=== PATIENT | female | born 1945 | race Caucasian/White ===

== ENCOUNTER 2019-02-25 16:44 | Inpatient (IN) | payer MEDICARE ==
[~2019-02-25 16:44] MED LIST: LEVOFLOXACIN500 MG PO; MAG-OXIDE400 MG PO
[2019-02-25 18:22] VITALS: BP 126/76; BMI 24.7
[2019-02-25 19:06] LABS: BASOPHILS 0.2 % (0-2); EOSINOPHILS 0 % (0-7); HEMATOCRIT 30.8 % (36.0-48.0); HEMOGLOBIN 10.7 g/dL (12-16); IMMATURE GRANULOCYTES 0.5 % (0-5); LYMPHOCYTES 13.8 % (15-50); MCH 33.5 pg (26.0-34.0); MCHC 34.7 g/dL (31.0-37.0); MCV 96.6 fL (80.0-100.0); MEAN PLATELET VOLUME 9.8 fL (7.4-10.4); NEUTROPHILS 76.5 % (40-80); PLATELET COUNT 145 10x3/uL (130-400); RBC 3.19 10x6/uL (4.00-5.40); RDW 14.4 % (11.5-14.5); WBC 4.3 10x3/uL (4.8-10.8)
[2019-02-25 19:18] LABS: ALBUMIN 2.4 g/dL (3.4-5.0); ANION GAP 8.1 mmol/L (8-16); BILIRUBIN - TOTAL 0.58 mg/dL (0.2-1.3); CALCIUM 8.2 mg/dL (8.5-10.1); CARBON DIOXIDE 32.3 mmol/L (21.0-32.0); MAGNESIUM - SERUM 2.3 mg/dL (1.8-2.4); PHOSPHOROUS 2.2 mg/dL (2.5-4.9); PROTEIN - SERUM 5.4 g/dL (6.4-8.2)
[2019-02-25 19:23] LABS: POTASSIUM - SERUM 2.4 mmol/L (3.5-5.1)
[2019-02-25 20:00] VITALS: BP 110/71
[2019-02-25 20:10] LABS: PRE-ALBUMIN 15.5 mg/dL (18.0-35.7); THYROID STIMULATING HORMONE 2.14 uIU/mL (0.36-3.74)
[2019-02-26 00:30] VITALS: BP 115/68
[2019-02-26 04:00] VITALS: BP 109/68
[2019-02-26 06:48] LABS: BASOPHILS 0.3 % (0-2); EOSINOPHILS 0.8 % (0-7); HEMATOCRIT 28.8 % (36.0-48.0); IMMATURE GRANULOCYTES 0.3 % (0-5); MCH 33.2 pg (26.0-34.0); MCHC 34.7 g/dL (31.0-37.0); MCV 95.7 fL (80.0-100.0); MONOCYTES 12.2 % (2-11); NEUTROPHILS 54.4 % (40-80); PLATELET COUNT 145 10x3/uL (130-400); RBC 3.01 10x6/uL (4.00-5.40); RDW 14.7 % (11.5-14.5); WBC 3.6 10x3/uL (4.8-10.8)
[2019-02-26 07:06] LABS: CALC OSMOLALITY 271 mosm/kg (275-300); CALCIUM 7.7 mg/dL (8.5-10.1); CARBON DIOXIDE 32.2 mmol/L (21.0-32.0); CHLORIDE - SERUM 99 mmol/L (98-107); CREATININE - SERUM 0.8 mg/dL (0.6-1.3); GLUCOSE 86 mg/dL (74-106); SODIUM 137 mmol/L (136-145); UREA NITROGEN 9 mg/dL (7-18); eGFR NON AFRICAN AMERICAN 75 mL/min (90-120)
[2019-02-26 07:07] LABS: POTASSIUM - SERUM 3.3 mmol/L (3.5-5.1)
--- NOTE | 2019-02-26 09:10 | HP ---
PATIENT: BARBARA REED MEDICAL RECORD: [id number] ACCOUNT: [id number] LOCATION:D.[facility] [place] : 49 ADMISSION DATE: 02/25/19 PCP: No PCP HISTORY AND PHYSICAL EXAMINATION HISTORY: Ms. Reed is a 73-year-old white female who was admitted from the office by Dr. Salazar for intractable nausea, vomiting, and severe weight loss. She was initially seen in the hospital for similar problems and discharged to have follow up with Dr. Salazar. She has been having some diarrhea and fever. She has had a significant weight loss. She has a history of breast cancer. She is being treated for recent UTI. She is being admitted for further evaluation and therapy. PAST MEDICAL HISTORY: Significant for history of breast cancer. She also has history of hypertension, but is currently on no meds. She has had recent UTI. PAST SURGICAL HISTORY: Previous surgeries include a mastectomy on the left. ALLERGIES OR INTOLERANCES: None. HOME MEDICATIONS: Recently started on some Levaquin for UTI and she also takes magnesium oxide. FAMILY HISTORY: Noncontributory. SOCIAL HISTORY: The patient does not smoke. She rarely has drunk some beer in the past. REVIEW OF SYSTEMS: No fever. Significant weight loss, family reports over 70 pounds in the last few months. She denies any chest pain. She denies any shortness of breath. She does complain of vomiting. She feels like things sometimes get stuck, worse with water. She has had some diarrhea in the last few days. No abdominal pain. No edema. PHYSICAL EXAMINATION: GENERAL: Cachectic white female who is in no distress at this time. NECK: Soft and supple. HEART: Regular. LUNGS: Clear. ABDOMEN: Soft with no definite masses. EXTREMITIES: Lower extremities reveal no edema. IMPRESSION: 1. Nausea and vomiting. 2. Dysphagia. 3. Severe weight loss. 4. History of breast cancer. PLAN: Admit, IV fluids, GI consult, probably needs an EGD, proton pump inhibitors at this time. See orders for rest of plan. TRANSINT:[id number] Voice Confirmation ID: [id number] DOCUMENT ID: [id number] HISTORY AND PHYSICAL [id number] DYLONBARBARA MATTHEW DO at 0910 CC: [id number] DICTATION DATE: 02/25/191924 WHOLESALE MANAGER: 02/25/191958 ADM IN [facility] [address] [id number]
[2019-02-26 09:14] VITALS: BP 109/58
[2019-02-26 12:27] VITALS: BP 123/66
[2019-02-26 14:06] VITALS: BMI 24.7
[2019-02-26 17:57] VITALS: BP 124/73
[2019-02-26 20:23] VITALS: BP 131/69
[2019-02-27 04:58] VITALS: BP 156/67
[2019-02-27 05:26] LABS: BASOPHILS 0.2 % (0-2); EOSINOPHILS 2.1 % (0-7); HEMATOCRIT 30.1 % (36.0-48.0); HEMOGLOBIN 10.3 g/dL (12-16); IMMATURE GRANULOCYTES 0.7 % (0-5); LYMPHOCYTES 31.8 % (15-50); MCH 33.2 pg (26.0-34.0); MCHC 34.2 g/dL (31.0-37.0); MCV 97.1 fL (80.0-100.0); MEAN PLATELET VOLUME 10.2 fL (7.4-10.4); MONOCYTES 9.5 % (2-11); NEUTROPHILS 55.7 % (40-80); PLATELET COUNT 172 10x3/uL (130-400); RDW 15.2 % (11.5-14.5); WBC 4.2 10x3/uL (4.8-10.8)
[2019-02-27 05:42] LABS: CALC OSMOLALITY 274 mosm/kg (275-300); CALCIUM 7.6 mg/dL (8.5-10.1); CARBON DIOXIDE 29.5 mmol/L (21.0-32.0); CHLORIDE - SERUM 104 mmol/L (98-107); CREATININE - SERUM 0.7 mg/dL (0.6-1.3); GLUCOSE 77 mg/dL (74-106); MAGNESIUM - SERUM 1.9 mg/dL (1.8-2.4); SODIUM 139 mmol/L (136-145); TRIGLYCERIDE 97 mg/dL (30-200); eGFR NON AFRICAN AMERICAN 87 mL/min (90-120)
[2019-02-27 05:49] LABS: PHOSPHOROUS 1.4 mg/dL (2.5-4.9); UREA NITROGEN 6 mg/dL (7-18)
[2019-02-27 08:52] VITALS: BP 125/73
[2019-02-27 13:21] VITALS: BP 137/76
[2019-02-27 16:40] VITALS: BP 137/80
[2019-02-27 20:00] VITALS: BP 124/78
[2019-02-28] VITALS: BP 121/75
[2019-02-28 03:00] VITALS: BP 127/82
[2019-02-28 06:40] LABS: BASOPHILS 0.3 % (0-2); EOSINOPHILS 2.6 % (0-7); HEMATOCRIT 28.3 % (36.0-48.0); HEMOGLOBIN 9.7 g/dL (12-16); IMMATURE GRANULOCYTES 0.5 % (0-5); LYMPHOCYTES 37.4 % (15-50); MCH 33.7 pg (26.0-34.0); MCHC 34.3 g/dL (31.0-37.0); MCV 98.3 fL (80.0-100.0); MEAN PLATELET VOLUME 9.6 fL (7.4-10.4); MONOCYTES 9.9 % (2-11); NEUTROPHILS 49.3 % (40-80); PLATELET COUNT 145 10x3/uL (130-400); RBC 2.88 10x6/uL (4.00-5.40); RDW 15.8 % (11.5-14.5); WBC 3.9 10x3/uL (4.8-10.8)
[2019-02-28 07:13] LABS: CALC OSMOLALITY 279 mosm/kg (275-300); CALCIUM 7.7 mg/dL (8.5-10.1); CARBON DIOXIDE 27.4 mmol/L (21.0-32.0); CHLORIDE - SERUM 107 mmol/L (98-107); CREATININE - SERUM 0.6 mg/dL (0.6-1.3); GLUCOSE 107 mg/dL (74-106); MAGNESIUM - SERUM 1.9 mg/dL (1.8-2.4); POTASSIUM - SERUM 3.6 mmol/L (3.5-5.1); SODIUM 141 mmol/L (136-145); eGFR NON AFRICAN AMERICAN > 90 mL/min (90-120)
[2019-02-28 07:15] LABS: PHOSPHOROUS 3.1 mg/dL (2.5-4.9); UREA NITROGEN 10 mg/dL (7-18)
[2019-02-28 09:07] VITALS: BP 139/92
[2019-02-28 14:16] VITALS: BP 139/82
[2019-02-28 17:15] VITALS: BP 142/81
[2019-02-28 20:00] VITALS: BP 131/75
[2019-03-01] VITALS: BP 128/68
[2019-03-01 03:00] VITALS: BP 105/81
[2019-03-01 06:48] LABS: BASOPHILS 0.2 % (0-2); EOSINOPHILS 2.4 % (0-7); HEMATOCRIT 30.3 % (36.0-48.0); HEMOGLOBIN 10.2 g/dL (12-16); LYMPHOCYTES 31.6 % (15-50); MCH 33.4 pg (26.0-34.0); MCHC 33.7 g/dL (31.0-37.0); MCV 99.3 fL (80.0-100.0); MONOCYTES 9.8 % (2-11); PLATELET COUNT 149 10x3/uL (130-400); RBC 3.05 10x6/uL (4.00-5.40); RDW 16.4 % (11.5-14.5)
[2019-03-01 06:51] LABS: WBC 5.1 10x3/uL (4.8-10.8)
[2019-03-01 07:03] LABS: CALCIUM 7.7 mg/dL (8.5-10.1); CARBON DIOXIDE 26.6 mmol/L (21.0-32.0); CHLORIDE - SERUM 109 mmol/L (98-107); CREATININE - SERUM 0.7 mg/dL (0.6-1.3); GLUCOSE 97 mg/dL (74-106); PHOSPHOROUS 3.3 mg/dL (2.5-4.9); SODIUM 140 mmol/L (136-145); eGFR NON AFRICAN AMERICAN 87 mL/min (90-120)
[2019-03-01 07:07] LABS: CALC OSMOLALITY 278 mosm/kg (275-300); POTASSIUM - SERUM 4.6 mmol/L (3.5-5.1); UREA NITROGEN 13 mg/dL (7-18)
[2019-03-01 08:30] LABS: APPEARANCE CLOUDY (CLEAR); BILIRUBIN NEGATIVE (NEGATIVE); COLOR YELLOW (YELLOW); GLUCOSE NEGATIVE (NEGATIVE); KETONE NEGATIVE (NEGATIVE); NITRITE NEGATIVE (NEGATIVE); PROTEIN TRACE mg/dL (NEGATIVE); UROBILINOGEN NORMAL (NORMAL)
[2019-03-01 08:33] LABS: BACTERIA MANY /hpf (NONE SEEN); EPITHELIAL CELLS 0-5 /hpf (0-5); RED CELLS - URINE 0-5 /hpf (0-5)
[2019-03-01 08:34] LABS: AMORPHOUS SEDIMENT <1+ /lpf (NONE SEEN); MUCUS <1+ /lpf (NONE SEEN)
[2019-03-01 09:54] VITALS: BP 121/88
[2019-03-01 13:43] VITALS: BP 129/77
[2019-03-01 17:49] VITALS: BP 143/83
[2019-03-01 20:00] VITALS: BP 118/64
[2019-03-02] VITALS: BP 120/60
[2019-03-02 03:00] VITALS: BP 130/72
[2019-03-02 06:45] LABS: BASOPHILS 0.8 % (0-2); EOSINOPHILS 2.3 % (0-7); HEMATOCRIT 32.1 % (36.0-48.0); HEMOGLOBIN 10.7 g/dL (12-16); IMMATURE GRANULOCYTES 0.6 % (0-5); LYMPHOCYTES 30.8 % (15-50); MCH 33.3 pg (26.0-34.0); MCHC 33.3 g/dL (31.0-37.0); MEAN PLATELET VOLUME 10.2 fL (7.4-10.4); MONOCYTES 8.9 % (2-11); NEUTROPHILS 56.6 % (40-80); PLATELET COUNT 168 10x3/uL (130-400); RBC 3.21 10x6/uL (4.00-5.40); RDW 16.6 % (11.5-14.5); WBC 5.2 10x3/uL (4.8-10.8)
[2019-03-02 06:58] LABS: CALC OSMOLALITY 281 mosm/kg (275-300); CALCIUM 8.2 mg/dL (8.5-10.1); CARBON DIOXIDE 24.1 mmol/L (21.0-32.0); CHLORIDE - SERUM 109 mmol/L (98-107); CREATININE - SERUM 0.7 mg/dL (0.6-1.3); GLUCOSE 104 mg/dL (74-106); PHOSPHOROUS 3.7 mg/dL (2.5-4.9); POTASSIUM - SERUM 4.9 mmol/L (3.5-5.1); SODIUM 141 mmol/L (136-145); UREA NITROGEN 15 mg/dL (7-18); eGFR NON AFRICAN AMERICAN 87 mL/min (90-120)
[2019-03-02 14:37] VITALS: BP 137/92
--- NOTE | 2019-03-02 18:05 | MORECARE ---
CASE MANAGEMENT DISCHARGE SUMMARY PATIENT: BARBARA OSBORNE UNIT: [id number] ADM DATE: 02/26/19 AGE: 73 : 47 SEX: F ROOM/BED: D.[facility]7 AUTHOR: SHIRLEY OCONNOR PHYSICIAN: REFERRING PHYSICIAN: FLORENTIN GARRIDO DO DATE OF SERVICE: 03/02/19 Discharge Plan Patient Name: BARBARA OSBORNE [facility] [facility] 1945 Planned Disposition: Inpatient Rehab Anticipated Discharge Date: Discharge Date: Expected LOS: Initial Reviewer: [email or web address] Initial Review Date: 03/02/2019 Generated: 03/02/19 7:05 pm DCPIA - Discharge Planning Initial Assessment Updated by [email or web address]: Geno Jackson on 03/02/19 6:00 pm * Is the patient Alert and Oriented? Yes * How many steps to enter\exit or inside your home? 0/0 * PCP No PCP * Pharmacy [facility] on [address] * Preadmission Environment Home with Family * ADLs Partial Dependent * Partial ADLs (Assistance needed) Ambulation * Equipment None * List name and contact numbers for known caregivers / representatives who currently or will assist patient after discharge: Alfredo Rico [facility] - [phone] Mode Bautista [facility] [phone] Desirae Hernandez [facility] - [phone] * Verbal permission to speak to the caregivers and representatives has been obtained from the patient. Yes * Community resources currently utilized None * Additional services required to return to the preadmission environment? Yes * Can the patient safely return to the preadmission environment? No * Has this patient been hospitalized within the prior 30 days at any hospital? Yes Patient Name: BARBARA OSBORNE Page [phone] at 1805 All edits/amendments must be made on the electronic document DICTATION DATE: 03/02/191804 JAVA ANALYST: ALISTAIR 03/02/191804 RPT#: [id number] DC DATE: STATUS: ADM IN [facility] [address] [place] [address] END OF REPORT
[2019-03-02 18:12] VITALS: BP 108/75
--- NOTE | 2019-03-02 18:13 | MORECARE ---
CASE MANAGEMENT DISCHARGE SUMMARY PATIENT: BARBARA OSBORNE UNIT: [id number] ADM DATE: 02/26/19 AGE: 73 : 47 SEX: F ROOM/BED: D.2237 AUTHOR: ANASTASIADOC PHYSICIAN: REFERRING PHYSICIAN: FLORENTIN GARRIDO DO DATE OF SERVICE: 03/02/19 Discharge Plan Patient Name: BARBARA OSBORNE Facility: [facility]:[place] : 1945 Planned Disposition: Inpatient Rehab Anticipated Discharge Date: Discharge Date: Expected LOS: Initial Reviewer: [email or web address] Initial Review Date: 03/02/2019 Generated: 03/02/19 7:12 pm Comments DCP- Discharge Planning Updated by [email or web address]: Geno Jackson on 03/02/19 5:[address] Patient Name: BARBARA OSBORNE Admission Status: Urgent Accout number: [id number] Admission Date: 02-26-2019 : 1945 Admission Diagnosis:NAUSEA WITH VOMITING, UNSPECIFIED Attending: FLORENTIN GARRIDO Current LOS: 4 Anticipated DC Date: Planned Disposition: Inpatient Rehab Primary Insurance: MEDICARE A & B CM met with patient to complete initial dc planning assessment. CM educated patient on the CM role and verbal consent given by patient to complete assessment. Patient lives at home with her son, . At discharge patient plans to go to her daughter's house. CM discussed availability of home health, rehab services, and medical equipment. The patient's sons and daughter are in the room and agree that she may need to have some rehab for strengthening prior to going to her daughter's home. They states they would like to stay here at [facility] for inpatient rehab if she qualifies. PT screen has been ordered. She does not have a PCP yet, the physician referral number given and the [facility] number given as well. Her son states they have called the referral number and were supposed to "get a call back from a doctor in [place] on Saturday, but have not received the call." CM will continue to follow and will assist as needed with dc plans/needs. Discharge Planning Comments: Lamps Tester And Inspector: Geno Jackson DCPIA - Discharge Planning Initial Assessment Updated by [email or web address]: Geno Jackson on 03/02/19 6:00 pm * Is the patient Alert and Oriented? Yes * How many steps to enter\\exit or inside your home? 0/0 * PCP No PCP * [facility] [address] * Preadmission Environment Home with Family * ADLs Partial Dependent * Partial ADLs (Assistance needed) Ambulation * Equipment None * List name and contact numbers for known caregivers / representatives who currently or will assist patient after discharge: Alfredo Rico - [facility] - [phone] Mode Bautista - [facility] - [phone] Desirae Mary [facility] [phone] * Verbal permission to speak to the caregivers and representatives has been obtained from the patient. Yes * Community resources currently utilized None * Additional services required to return to the preadmission environment? Yes * Can the patient safely return to the preadmission environment? No * Has this patient been hospitalized within the prior 30 days at any hospital? Yes Last DP export: 03/02/19 5:05 pm Patient Name: BARBARA OSBORNE Page [id number] at 1813 All edits/amendments must be made on the electronic document DICTATION DATE: 03/02/191811 NUTRITION INSTRUCTOR: ALISTAIR 03/02/191811 RPT#: [id number] DC DATE: STATUS: ADM IN [facility] [address] [place] [address] END OF REPORT
[2019-03-02 20:43] LABS: % SATURATION 48 % (15-55); IRON 66 ug/dl (35-150); TOTAL IRON BIND CAPACITY 137 ug/dl (260-445); UNSAT IRON BIND CAPACITY 71 ug/dl (150-375)
[2019-03-02 21:57] VITALS: BP 137/67
[2019-03-03 01:45] VITALS: BP 131/67
[2019-03-03 05:19] VITALS: BP 140/84
[2019-03-03 07:55] LABS: ALKALINE PHOSPHATASE 58 U/L (46-116); ALT (SGPT) 15 U/L (10-68); BILIRUBIN - TOTAL 0.24 mg/dL (0.2-1.3); CALCIUM 8.1 mg/dL (8.5-10.1); CARBON DIOXIDE 24.3 mmol/L (21.0-32.0); CREATININE - SERUM 0.8 mg/dL (0.6-1.3); GLUCOSE 127 mg/dL (74-106); MAGNESIUM - SERUM 2.1 mg/dL (1.8-2.4); PROTEIN - SERUM 4.9 g/dL (6.4-8.2); UREA NITROGEN 18 mg/dL (7-18); eGFR NON AFRICAN AMERICAN 75 mL/min (90-120)
[2019-03-03 08:37] LABS: CALC OSMOLALITY 273 mosm/kg (275-300); CHLORIDE - SERUM 106 mmol/L (98-107); POTASSIUM - SERUM 4.9 mmol/L (3.5-5.1); SODIUM 135 mmol/L (136-145)
[2019-03-03 08:55] VITALS: BP 128/71
[2019-03-03 08:56] LABS: BASOPHILS 1.1 % (0-2); EOSINOPHILS 5.5 % (0-7); HEMATOCRIT 29.3 % (36.0-48.0); HEMOGLOBIN 9.6 g/dL (12-16); IMMATURE GRANULOCYTES 1.7 % (0-5); LYMPHOCYTES 32.1 % (15-50); MCH 33.7 pg (26.0-34.0); MCHC 32.8 g/dL (31.0-37.0); MEAN PLATELET VOLUME 10.4 fL (7.4-10.4); MONOCYTES 9.4 % (2-11); NEUTROPHILS 50.2 % (40-80); PLATELET COUNT 137 10x3/uL (130-400); RBC 2.85 10x6/uL (4.00-5.40)
[2019-03-03 08:58] LABS: MCV 102.8 fL (80.0-100.0); WBC 3.6 10x3/uL (4.8-10.8)
[2019-03-03 12:24] VITALS: BP 146/67
[2019-03-03 16:45] VITALS: BP 107/70
[2019-03-03 21:18] VITALS: BP 107/58
[2019-03-04 02:04] VITALS: BP 112/60
[2019-03-04 05:44] LABS: EOSINOPHILS 2.7 % (0-7); HEMATOCRIT 27.3 % (36.0-48.0); HEMOGLOBIN 9.2 g/dL (12-16); IMMATURE GRANULOCYTES 1.2 % (0-5); LYMPHOCYTES 30.7 % (15-50); MCH 33.9 pg (26.0-34.0); MCHC 33.7 g/dL (31.0-37.0); MEAN PLATELET VOLUME 9.9 fL (7.4-10.4); MONOCYTES 12.5 % (2-11); NEUTROPHILS 51.9 % (40-80); RBC 2.71 10x6/uL (4.00-5.40); RDW 16.8 % (11.5-14.5); WBC 4.1 10x3/uL (4.8-10.8)
[2019-03-04 05:53] LABS: MCV 100.7 fL (80.0-100.0); PLATELET COUNT 168 10x3/uL (130-400)
[2019-03-04 05:59] VITALS: BP 122/61
[2019-03-04 06:14] LABS: ALBUMIN 1.9 g/dL (3.4-5.0); ALKALINE PHOSPHATASE 60 U/L (46-116); ALT (SGPT) 15 U/L (10-68); BILIRUBIN - TOTAL 0.18 mg/dL (0.2-1.3); CALC OSMOLALITY 274 mosm/kg (275-300); CALCIUM 7.6 mg/dL (8.5-10.1); CARBON DIOXIDE 22.3 mmol/L (21.0-32.0); CHLORIDE - SERUM 105 mmol/L (98-107); CREATININE - SERUM 0.8 mg/dL (0.6-1.3); GLUCOSE 124 mg/dL (74-106); POTASSIUM - SERUM 4.3 mmol/L (3.5-5.1); PROTEIN - SERUM 4.8 g/dL (6.4-8.2); SODIUM 135 mmol/L (136-145); eGFR NON AFRICAN AMERICAN 75 mL/min (90-120)
[2019-03-04 06:21] LABS: UREA NITROGEN 23 mg/dL (7-18)
[2019-03-04 09:41] VITALS: BP 99/46
[2019-03-04 15:09] VITALS: BP 115/70
[2019-03-04 17:35] VITALS: BP 136/80
[2019-03-04 22:22] VITALS: BP 126/68
[2019-03-05 05:16] VITALS: BP 122/63
[2019-03-05 08:26] LABS: BASOPHILS 0.5 % (0-2); EOSINOPHILS 0.7 % (0-7); HEMATOCRIT 25.6 % (36.0-48.0); HEMOGLOBIN 8.7 g/dL (12-16); IMMATURE GRANULOCYTES 0.8 % (0-5); LYMPHOCYTES 11.5 % (15-50); MCH 34.1 pg (26.0-34.0); MCV 100.4 fL (80.0-100.0); MEAN PLATELET VOLUME 9.8 fL (7.4-10.4); NEUTROPHILS 74.5 % (40-80); PLATELET COUNT 171 10x3/uL (130-400); RBC 2.55 10x6/uL (4.00-5.40); RDW 17.1 % (11.5-14.5)
[2019-03-05 08:36] LABS: WBC 6.1 10x3/uL (4.8-10.8)
[2019-03-05 08:42] LABS: ALBUMIN 1.8 g/dL (3.4-5.0); ALKALINE PHOSPHATASE 63 U/L (46-116); ALT (SGPT) 15 U/L (10-68); BILIRUBIN - TOTAL 0.24 mg/dL (0.2-1.3); CALCIUM 7.5 mg/dL (8.5-10.1); CARBON DIOXIDE 21.3 mmol/L (21.0-32.0); CHLORIDE - SERUM 109 mmol/L (98-107); CREATININE - SERUM 0.8 mg/dL (0.6-1.3); PHOSPHOROUS 2.8 mg/dL (2.5-4.9); POTASSIUM - SERUM 4.5 mmol/L (3.5-5.1); PROTEIN - SERUM 4.6 g/dL (6.4-8.2); SODIUM 138 mmol/L (136-145); UREA NITROGEN 24 mg/dL (7-18); eGFR NON AFRICAN AMERICAN 75 mL/min (90-120)
[2019-03-05 08:43] LABS: CALC OSMOLALITY 283 mosm/kg (275-300); GLUCOSE 177 mg/dL (74-106)
[2019-03-05 09:05] VITALS: BP 118/65
[2019-03-05 12:47] VITALS: BP 106/60
--- NOTE | 2019-03-05 16:01 | MORECARE ---
CASE MANAGEMENT DISCHARGE SUMMARY PATIENT: BARBARA OSBORNE UNIT: [id number] ADM DATE: 02/26/19 AGE: 73 : 47 SEX: F ROOM/BED: D.2237 AUTHOR: ANASTASIADOC PHYSICIAN: REFERRING PHYSICIAN: FLORENTIN GARRIDO DO DATE OF SERVICE: 03/05/19 Discharge Plan Patient Name: BARBARA OSBORNE Facility: [facility]:[place] : 1945 Planned Disposition: Inpatient Rehab Anticipated Discharge Date: Discharge Date: Expected LOS: Initial Reviewer: [email or web address] Initial Review Date: 03/02/2019 Generated: 03/05/19 5:01 pm Comments DCP- Discharge Planning Updated by [email or web address]: Geno Jackson on 03/02/19 5:[address] Patient Name: BARBARA OSBORNE Admission Status: Urgent Accout number: [id number] Admission Date: 02-26-2019 : 1945 Admission Diagnosis:NAUSEA WITH VOMITING, UNSPECIFIED Attending: FLORENTIN GARRIDO Current LOS: 4 Anticipated DC Date: Planned Disposition: Inpatient Rehab Primary Insurance: MEDICARE A & B CM met with patient to complete initial dc planning assessment. CM educated patient on the CM role and verbal consent given by patient to complete assessment. Patient lives at home with her son, . At discharge patient plans to go to her daughter's house. CM discussed availability of home health, rehab services, and medical equipment. The patient's sons and daughter are in the room and agree that she may need to have some rehab for strengthening prior to going to her daughter's home. They states they would like to stay here at [facility] for inpatient rehab if she qualifies. PT screen has been ordered. She does not have a PCP yet, the physician referral number given and the [facility] number given as well. Her son states they have called the referral number and were supposed to "get a call back from a doctor in [place] on Saturday, but have not received the call." CM will continue to follow and will assist as needed with dc plans/needs. Discharge Planning Comments: Home Health Nurse Licensed Practical: Geno Jackson DCPIA - Discharge Planning Initial Assessment Updated by [email or web address]: Geno Jackson on 03/02/19 6:00 pm * Is the patient Alert and Oriented? Yes * How many steps to enter\\exit or inside your home? 0/0 * PCP No PCP * [facility] [address] * Preadmission Environment Home with Family * ADLs Partial Dependent * Partial ADLs (Assistance needed) Ambulation * Equipment None * List name and contact numbers for known caregivers / representatives who currently or will assist patient after discharge: Alfredo Rico - [facility] - [phone] Mode Bautista - [facility] - [phone] Desirae Hernandez [facility] [phone] * Verbal permission to speak to the caregivers and representatives has been obtained from the patient. Yes * Community resources currently utilized None * Additional services required to return to the preadmission environment? Yes * Can the patient safely return to the preadmission environment? No * Has this patient been hospitalized within the prior 30 days at any hospital? Yes External Providers External Provider: [facility] Next Contact Date: Service Request Date: Service Type: Resolution: Reviewer: Comments: External Provider: Donna Next Contact Date: Service Request Date: Service Type: Resolution: Reviewer: Comments: Last DP export: 03/02/19 5:12 pm Patient Name: BARBARA OSBORNE Page [phone] at 1601 All edits/amendments must be made on the electronic document DICTATION DATE: 03/05/191600 AIRPLANE REFUELER: ALISTAIR 03/05/191600 RPT#: [id number] SC DATE: STATUS: ADM IN [facility] [address] [place] [address] END OF REPORT
[2019-03-05 17:24] VITALS: BP 122/95
[2019-03-05 20:34] VITALS: BP 115/53
[2019-03-06 00:05] VITALS: BP 124/50
[2019-03-06 05:15] VITALS: BP 129/71
[2019-03-06 06:22] LABS: ALBUMIN 1.7 g/dL (3.4-5.0); ALKALINE PHOSPHATASE 72 U/L (46-116); ALT (SGPT) 12 U/L (10-68); BILIRUBIN - TOTAL 0.24 mg/dL (0.2-1.3); CALC OSMOLALITY 277 mosm/kg (275-300); CALCIUM 7.3 mg/dL (8.5-10.1); CARBON DIOXIDE 23.1 mmol/L (21.0-32.0); CHLORIDE - SERUM 106 mmol/L (98-107); CREATININE - SERUM 0.7 mg/dL (0.6-1.3); GLUCOSE 134 mg/dL (74-106); POTASSIUM - SERUM 4.1 mmol/L (3.5-5.1); PROTEIN - SERUM 4.3 g/dL (6.4-8.2); SODIUM 137 mmol/L (136-145); UREA NITROGEN 19 mg/dL (7-18); eGFR NON AFRICAN AMERICAN 87 mL/min (90-120)
[2019-03-06 07:20] LABS: HEMATOCRIT 24.1 % (36.0-48.0); HEMOGLOBIN 8.4 g/dL (12-16); LYMPHOCYTES 21.9 % (15-50); MCH 35.6 pg (26.0-34.0); MCHC 34.9 g/dL (31.0-37.0); MCV 102.1 fL (80.0-100.0); MEAN PLATELET VOLUME 9.9 fL (7.4-10.4); NEUTROPHILS 65.3 % (40-80); PLATELET COUNT 166 10x3/uL (130-400); RBC 2.36 10x6/uL (4.00-5.40); RDW 17.3 % (11.5-14.5); WBC 5.7 10x3/uL (4.8-10.8)
[2019-03-06 08:31] VITALS: BP 127/74
--- NOTE | 2019-03-06 12:26 | MORECARE ---
CASE MANAGEMENT DISCHARGE SUMMARY PATIENT: BARBARA OSBORNE UNIT: [id number] ADM DATE: 02/26/19 AGE: 73 : 47 SEX: F ROOM/BED: D.2237 AUTHOR: ANASTASIADOC PHYSICIAN: REFERRING PHYSICIAN: FLORENTIN GARRIDO DO DATE OF SERVICE: 03/06/19 Discharge Plan Patient Name: BARBARA OSBORNE Facility: [facility]:[place] : 1945 Planned Disposition: Inpatient Rehab Anticipated Discharge Date: Discharge Date: Expected LOS: Initial Reviewer: [email or web address] Initial Review Date: 03/02/2019 Generated: 03/06/19 1:26 pm Comments DCP- Discharge Planning Updated by [id number]: Geno Jackson on 03/02/19 5:[address] Patient Name: BARBARA OSBORNE Admission Status: Urgent Accout number: [id number] Admission Date: 02-26-2019 : 1945 Admission Diagnosis:NAUSEA WITH VOMITING, UNSPECIFIED Attending: FLORENTIN GARRIDO Current LOS: 4 Anticipated DC Date: Planned Disposition: Inpatient Rehab Primary Insurance: MEDICARE A & B CM met with patient to complete initial dc planning assessment. CM educated patient on the CM role and verbal consent given by patient to complete assessment. Patient lives at home with her son, . At discharge patient plans to go to her daughter's house. CM discussed availability of home health, rehab services, and medical equipment. The patient's sons and daughter are in the room and agree that she may need to have some rehab for strengthening prior to going to her daughter's home. They states they would like to stay here at [facility] for inpatient rehab if she qualifies. PT screen has been ordered. She does not have a PCP yet, the physician referral number given and the [facility] number given as well. Her son states they have called the referral number and were supposed to "get a call back from a doctor in [place] on Saturday, but have not received the call." CM will continue to follow and will assist as needed with dc plans/needs. Discharge Planning Comments: Business Services Analyst: Geno Jackson DCPIA - Discharge Planning Initial Assessment Updated by [email or web address]: Geno Jackson on 03/02/19 6:00 pm * Is the patient Alert and Oriented? Yes * How many steps to enter\\exit or inside your home? 0/0 * PCP No PCP * [facility]acy [facility] [address] * Preadmission Environment Home with Family * ADLs Partial Dependent * Partial ADLs (Assistance needed) Ambulation * Equipment None * List name and contact numbers for known caregivers / representatives who currently or will assist patient after discharge: Alfredo Rico - son - [phone] Mode Bautista - son - [phone] Desirae Hernandez [facility] [phone] * Verbal permission to speak to the caregivers and representatives has been obtained from the patient. Yes * Community resources currently utilized None * Additional services required to return to the preadmission environment? Yes * Can the patient safely return to the preadmission environment? No * Has this patient been hospitalized within the prior 30 days at any hospital? Yes Coverage Notice Reviewer: [email or web address] - Geno Renetta Notice Issued Date-Time: 03/05/2019 14:00 Notice Type: Patient Choice Letter Notice Delivered To: Family Member Relationship to Patient: Son Chair Mechanic Name: Alfredo Rico Delivery Method: HAND - Hand Delivered Malgorzata Days: Prior Verbal Notification: Recipient Understood Notice: Yes Recipient Signature: Yes Med Rec Note Co-signed by Attending: Coverage Notice Comment: TABATHA for [place] [place], [facility] and [employer] Last DP export: 03/05/19 3:01 p Patient Name: BARBARA OSBORNE Page [id number] at 1226 All edits/amendments must be made on the electronic document DICTATION DATE: 03/06/19 1226 HIGH SCHOOL LEARNING SUPPORT TEACHER: ALISTAIR 03/06/19 1226 RPT#: [id number] DC DATE: STATUS: ADM IN [facility] [address] [place] [address] END OF REPORT
--- NOTE | 2019-03-06 12:34 | MORECARE ---
CASE MANAGEMENT DISCHARGE SUMMARY PATIENT: BARBARA OSBORNE UNIT: [id number] ADM DATE: 02/26/19 AGE: 73 : 47 SEX: F ROOM/BED: D.2237 AUTHOR: ANASTASIA,DOC PHYSICIAN: REFERRING PHYSICIAN: FLORENTIN GARRIDO DO DATE OF SERVICE: 03/06/19 Discharge Plan Patient Name: BARBARA OSBORNE Facility: [facility]:[place] : 1945 Planned Disposition: Inpatient Rehab Anticipated Discharge Date: Discharge Date: Expected LOS: Initial Reviewer: [email or web address] Initial Review Date: 03/02/2019 Generated: 03/06/19 1:34 pm Comments DCP- Discharge Planning Updated by [email or web address]: Geno Jackson on 03/06/19 11:[address] Sarah arnold [facility] states they can see the patient on Saturday. The son in law states she cannot come home today because they are spraying for roaches. Neel has her equipment ready when I send the signed order. I have called Laura for her signature. I spoke with the daughter and they are getting the home ready for discharge on Saturday. CM will continue to follow and assist with discharge planning/needs. DCP- Discharge Planning Updated by [email or web address]: Geno Jackson on 03/02/19 5:[address] Patient Name: BARBARA OSBORNE Admission Status: Urgent Accout number: [id number] Admission Date: 02-26-2019 : 1945 Admission Diagnosis:NAUSEA WITH VOMITING, UNSPECIFIED Attending: FLORENTIN GARRIDO Current LOS: 4 Anticipated DC Date: Planned Disposition: Inpatient Rehab Primary Insurance: MEDICARE A & B CM met with patient to complete initial dc planning assessment. CM educated patient on the CM role and verbal consent given by patient to complete assessment. Patient lives at home with her sonRobert. . At discharge patient plans to go to her daughter's house. CM discussed availability of home health, rehab services, and medical equipment. The patient's sons and daughter are in the room and agree that she may need to have some rehab for strengthening prior to going to her daughter's home. They states they would like to stay here at [facility] for inpatient rehab if she qualifies. PT screen has been ordered. She does not have a PCP yet, the physician referral number given and the [facility] number given as well. Her son states they have called the referral number and were supposed to "get a call back from a doctor in [place] on Saturday, but have not received the call." CM will continue to follow and will assist as needed with dc plans/needs. Discharge Planning Comments: Test Architect: Geno Renetta DCPIA - Discharge Planning Initial Assessment Updated by [email or web address]: Geno Jackson on 03/02/19 6:00 pm * Is the patient Alert and Oriented? Yes * How many steps to enter\\exit or inside your home? 0/0 * PCP No PCP * [facility] [address] * Preadmission Environment Home with Family * ADLs Partial Dependent * Partial ADLs (Assistance needed) Ambulation * Equipment None * List name and contact numbers for known caregivers / representatives who currently or will assist patient after discharge: Alfredo Rico - [facility] - [phone] Mode Bautista [facility] - [phone] Desirae Hernandez [facility] - [phone] * Verbal permission to speak to the caregivers and representatives has been obtained from the patient. Yes * Community resources currently utilized None * Additional services required to return to the preadmission environment? Yes * Can the patient safely return to the preadmission environment? No * Has this patient been hospitalized within the prior 30 days at any hospital? Yes Coverage Notice Reviewer: [email or web address] - Geno Renetta Notice Issued Date-Time: 03/05/2019 14:00 Notice Type: Patient Choice Letter Notice Delivered To: Family Member Relationship to Patient: Son Stave Log Ripsaw Operator Name: Alfredo Rico Delivery Method: HAND - Hand Delivered Malgorzata Days: Prior Verbal Notification: Recipient Understood Notice: Yes Recipient Signature: Yes Med Rec Note Co-signed by Attending: Coverage Notice Comment: TABATHA for [place], [facility] and [employer] Last DP export: 03/06/19 11:26 a Patient Name: BARBARA OSBORNE Page 18500 at 1234 All edits/amendments must be made on the electronic document DICTATION DATE: 03/06/19 1233 DIESEL ENGINE FITTER: ALISTAIR 03/06/19 1233 RPT#: [id number] DC DATE: STATUS: ADM IN [facility] [address] [place] [address] END OF REPORT
--- NOTE | 2019-03-06 12:42 | MORECARE ---
CASE MANAGEMENT DISCHARGE SUMMARY PATIENT: BARBARA OSBORNE UNIT: [id number] ADM DATE: 02/26/19 AGE: 73 : [birth year] SEX: F ROOM/BED: D.2237 AUTHOR: ANASTASIA,DOC PHYSICIAN: REFERRING PHYSICIAN: FLORENTIN GARRIDO DO DATE OF SERVICE: 03/06/19 Discharge Plan Patient Name: BARBARA OSBORNE Facility: [facility]:[place] : 1945 Planned Disposition: Inpatient Rehab Anticipated Discharge Date: Discharge Date: Expected LOS: Initial Reviewer: [id number] Initial Review Date: 03/02/2019 Generated: 03/06/19 1:41 pm Comments DCP- Discharge Planning Updated by [email or web address]: Geno Jackson on 03/06/19 11:[address] Sarah arnold [facility] states they can see the patient on Saturday. The son in law states she cannot come home today because they are spraying for roaches. [facility] has her equipment ready when I send the signed order. I have called Laura for her signature. I spoke with the daughter and they are getting the home ready for discharge on Saturday. CM will continue to follow and assist with discharge planning/needs. DCP- Discharge Planning Updated by [id number]: Geno Jackson on 03/02/19 5:[address] Patient Name: BARBARA OSBORNE Admission Status: Urgent Accout number: [id number] Admission Date: 02-26-2019 : 1945 Admission Diagnosis:NAUSEA WITH VOMITING, UNSPECIFIED Attending: FLORENTIN GARRIDO Current LOS: 4 Anticipated DC Date: Planned Disposition: Inpatient Rehab Primary Insurance: MEDICARE A & B CM met with patient to complete initial dc planning assessment. CM educated patient on the CM role and verbal consent given by patient to complete assessment. Patient lives at home with her sonRobert. . At discharge patient plans to go to her daughter's house. CM discussed availability of home health, rehab services, and medical equipment. The patient's sons and daughter are in the room and agree that she may need to have some rehab for strengthening prior to going to her daughter's home. They states they would like to stay here at [facility] for inpatient rehab if she qualifies. PT screen has been ordered. She does not have a PCP yet, the physician referral number given and the [facility] number given as well. Her son states they have called the referral number and were supposed to "get a call back from a doctor in [place] on Saturday, but have not received the call." CM will continue to follow and will assist as needed with dc plans/needs. Discharge Planning Comments: Risk Advisor: Genomigdalia Jackson DCPIA - Discharge Planning Initial Assessment Updated by [id number]: Geno Jackson on 03/02/19 6:00 pm * Is the patient Alert and Oriented? Yes * How many steps to enter\\exit or inside your home? 0/0 * PCP No PCP * Pharmacy [facility] on [address] [place] * Preadmission Environment Home with Family * ADLs Partial Dependent * Partial ADLs (Assistance needed) Ambulation * Equipment None * List name and contact numbers for known caregivers / representatives who currently or will assist patient after discharge: Alfredo Rico - [facility] - [phone] Mode Bautista [facility] - [phone] Desirae Hernandez [facility] - [phone] * Verbal permission to speak to the caregivers and representatives has been obtained from the patient. Yes * Community resources currently utilized None * Additional services required to return to the preadmission environment? Yes * Can the patient safely return to the preadmission environment? No * Has this patient been hospitalized within the prior 30 days at any hospital? Yes External Providers External Provider: [facility] Next Contact Date: Service Request Date: Service Type: Resolution: Reviewer: Comments: Coverage Notice Reviewer: [id number] - Geno Renetta Notice Issued Date-Time: 03/05/2019 14:00 Notice Type: Patient Choice Letter Notice Delivered To: Family Member Relationship to Patient: Son Charge Nurse Name: Alfredo Rico Delivery Method: HAND - Hand Delivered Malgorzata Days: Prior Verbal Notification: Recipient Understood Notice: Yes Recipient Signature: Yes Med Rec Note Co-signed by Attending: Coverage Notice Comment: TABATHA for [employer] [employer] Last DP export: 03/06/19 11:34 a Patient Name: BARBARA OSBORNE Page [id number] at 1242 All edits/amendments must be made on the electronic document DICTATION DATE: 03/06/191240 PESTICIDE CONTROL INSPECTOR: ALISTAIR 03/06/191240 RPT#: [id number] DC DATE: STATUS: ADM IN [facility] [address] [place] [address] END OF REPORT
[2019-03-06 13:02] VITALS: BP 129/69
[2019-03-06 16:44] VITALS: BP 135/48
[2019-03-06 20:01] VITALS: BP 135/80
[2019-03-07 01:25] VITALS: BP 135/72
[2019-03-07 04:57] VITALS: BP 96/66
[2019-03-07 06:20] LABS: BASOPHILS 0.6 % (0-2); EOSINOPHILS 0.6 % (0-7); HEMATOCRIT 22.2 % (36.0-48.0); IMMATURE GRANULOCYTES 1.5 % (0-5); LYMPHOCYTES 21.1 % (15-50); MCH 33.8 pg (26.0-34.0); MCHC 33.3 g/dL (31.0-37.0); MCV 101.4 fL (80.0-100.0); MEAN PLATELET VOLUME 9.5 fL (7.4-10.4); MONOCYTES 7.6 % (2-11); NEUTROPHILS 68.6 % (40-80); PLATELET COUNT 161 10x3/uL (130-400); RBC 2.19 10x6/uL (4.00-5.40); RDW 17.5 % (11.5-14.5)
[2019-03-07 06:24] LABS: HEMOGLOBIN 7.4 g/dL (12-16); WBC 3.4 10x3/uL (4.8-10.8)
[2019-03-07 06:34] LABS: ALBUMIN 1.5 g/dL (3.4-5.0); ALKALINE PHOSPHATASE 78 U/L (46-116); ALT (SGPT) 13 U/L (10-68); BILIRUBIN - TOTAL 0.15 mg/dL (0.2-1.3); CALC OSMOLALITY 271 mosm/kg (275-300); CALCIUM 7.4 mg/dL (8.5-10.1); CARBON DIOXIDE 22.8 mmol/L (21.0-32.0); CHLORIDE - SERUM 105 mmol/L (98-107); CREATININE - SERUM 0.7 mg/dL (0.6-1.3); GLUCOSE 122 mg/dL (74-106); POTASSIUM - SERUM 3.9 mmol/L (3.5-5.1); PROTEIN - SERUM 4.7 g/dL (6.4-8.2); SODIUM 135 mmol/L (136-145); UREA NITROGEN 15 mg/dL (7-18); eGFR NON AFRICAN AMERICAN 87 mL/min (90-120)
[2019-03-07 09:06] VITALS: BP 152/74
[2019-03-07 13:53] VITALS: BP 110/77
[2019-03-07 16:24] VITALS: BP 123/67
[2019-03-07 18:23] LABS: APPEARANCE CLEAR (CLEAR); BILIRUBIN NEGATIVE (NEGATIVE); COLOR YELLOW (YELLOW); GLUCOSE NEGATIVE (NEGATIVE); KETONE NEGATIVE (NEGATIVE); NITRITE NEGATIVE (NEGATIVE); PROTEIN NEGATIVE (NEGATIVE); SPECIFIC GRAVITY 1.015 (1.005-1.020); UROBILINOGEN NORMAL (NORMAL)
[2019-03-07 20:25] VITALS: BP 109/70
[2019-03-08 03:41] VITALS: BP 110/68
[2019-03-08 09:08] VITALS: BP 122/69
[2019-03-08 13:36] VITALS: BP 140/73
[2019-03-08 15:02] LABS: BASOPHILS 0.5 % (0-2); EOSINOPHILS 1.2 % (0-7); MCH 33.2 pg (26.0-34.0); MCHC 34.2 g/dL (31.0-37.0); MEAN PLATELET VOLUME 9.8 fL (7.4-10.4); MONOCYTES 9.4 % (2-11); NEUTROPHILS 58.9 % (40-80); PLATELET COUNT 141 10x3/uL (130-400); RDW 16.9 % (11.5-14.5)
[2019-03-08 15:03] LABS: HEMATOCRIT 29.2 % (36.0-48.0); RBC 3.01 10x6/uL (4.00-5.40)
[2019-03-08 15:22] LABS: CALC OSMOLALITY 269 mosm/kg (275-300); CALCIUM 7.3 mg/dL (8.5-10.1); CARBON DIOXIDE 25.6 mmol/L (21.0-32.0); CHLORIDE - SERUM 104 mmol/L (98-107); CREATININE - SERUM 0.7 mg/dL (0.6-1.3); GLUCOSE 112 mg/dL (74-106); POTASSIUM - SERUM 3.8 mmol/L (3.5-5.1); SODIUM 135 mmol/L (136-145); eGFR NON AFRICAN AMERICAN 87 mL/min (90-120)
[2019-03-08 15:23] LABS: UREA NITROGEN 11 mg/dL (7-18)
[2019-03-08 18:14] VITALS: BP 133/78
[2019-03-08 19:50] VITALS: BP 100/60
[2019-03-09 04:28] VITALS: BP 128/74
[2019-03-09 04:55] LABS: BASOPHILS 0.3 % (0-2); EOSINOPHILS 1.6 % (0-7); HEMATOCRIT 28.7 % (36.0-48.0); HEMOGLOBIN 9.8 g/dL (12-16); IMMATURE GRANULOCYTES 0.8 % (0-5); LYMPHOCYTES 29.5 % (15-50); MCH 32.9 pg (26.0-34.0); MCHC 34.1 g/dL (31.0-37.0); MCV 96.3 fL (80.0-100.0); MEAN PLATELET VOLUME 9.9 fL (7.4-10.4); MONOCYTES 10.6 % (2-11); NEUTROPHILS 57.2 % (40-80); PLATELET COUNT 143 10x3/uL (130-400); RBC 2.98 10x6/uL (4.00-5.40); RDW 16.9 % (11.5-14.5); WBC 3.8 10x3/uL (4.8-10.8)
[2019-03-09 05:12] LABS: CALC OSMOLALITY 277 mosm/kg (275-300); CALCIUM 7.7 mg/dL (8.5-10.1); CHLORIDE - SERUM 107 mmol/L (98-107); CREATININE - SERUM 0.7 mg/dL (0.6-1.3); GLUCOSE 116 mg/dL (74-106); POTASSIUM - SERUM 3.9 mmol/L (3.5-5.1); SODIUM 139 mmol/L (136-145); UREA NITROGEN 11 mg/dL (7-18); eGFR NON AFRICAN AMERICAN 87 mL/min (90-120)
[2019-03-09 09:01] VITALS: BP 110/64
[2019-03-09 12:57] VITALS: BP 114/78
[2019-03-09] MEDS ORDERED: LEVOFLOXACIN500 MG PO (14:12)
[2019-03-09] MEDS ORDERED: PROTONIX40 MG PO (14:13)
[2019-03-09] MEDS ORDERED: IPRAT-ALBUT 0.5-3 ML UPD (14:13)
[2019-03-09] MEDS ORDERED: FLORAJEN3 CAPS460 MG PO (14:13)
[2019-03-09] MEDS ORDERED: ALBUTEROL SULF8.5 GM INH (14:18)
--- NOTE | 2019-03-09 15:25 | MORECARE ---
CASE MANAGEMENT DISCHARGE SUMMARY PATIENT: BARBARA OSBORNE UNIT: [id number] ADM DATE: 02/26/19 AGE: 73 : 47 SEX: F ROOM/BED: D.2237 AUTHOR: ANASTASIADOC PHYSICIAN: REFERRING PHYSICIAN: FLORENTIN GARRIDO DO DATE OF SERVICE: 03/09/19 Discharge Plan Patient Name: BARBARA OSBORNE Facility: [facility]:[place] : 1945 Planned Disposition: Inpatient Rehab Anticipated Discharge Date: Discharge Date: Expected LOS: Initial Reviewer: [email or web address] Initial Review Date: 03/02/2019 Generated: 03/09/19 4:25 pm Comments DCP- Discharge Planning Updated by [email or web address]: Geno Jackson on 03/09/19 2:[address] Received order for discharge. I called and spoke to Sarah with [employer] [facility], they will see her tomorrow, clinical faxed. I called and spoke to Blu with [facility], they will be here between 4-4:30 for teaching. Son (Fredi) is in the room and informed. Fredi states they have called his sister and she will be here as well for teaching. Son states they have the hospital bed, walker, shower chair in place at the house already from [facility]. I spoke with Dr. Wilhelm's office and will fax clinical to [phone] as requested for an appointment. CM will continue to follow and assist with discharge planning/needs. DCP- Discharge Planning Updated by [email or web address]: Geno Jackson on 03/06/19 11:[address] Sarah with [employer] [facility] states they can see the patient on Saturday. The son in law states she cannot come home today because they are spraying for roaches. [facility] has her equipment ready when I send the signed order. I have called Laura for her signature. I spoke with the daughter and they are getting the home ready for discharge on Saturday. CM will continue to follow and assist with discharge planning/needs. DCP- Discharge Planning Updated by [id number]: Geno Jackson on 03/02/19 5:[address] Patient Name: DYLON Admission Status: Urgent Accout number: [id number] Admission Date: 02-26-2019 : 1945 Admission Diagnosis:NAUSEA WITH VOMITING, UNSPECIFIED Attending: FLORENTIN GARRIDO Current LOS: 4 Anticipated DC Date: Planned Disposition: Inpatient Rehab Primary Insurance: MEDICARE A & B CM met with patient to complete initial dc planning assessment. CM educated patient on the CM role and verbal consent given by patient to complete assessment. Patient lives at home with her son, . At discharge patient plans to go to her daughter's house. CM discussed availability of home health, rehab services, and medical equipment. The patient's sons and daughter are in the room and agree that she may need to have some rehab for strengthening prior to going to her daughter's home. They states they would like to stay here at [facility] for inpatient rehab if she qualifies. PT screen has been ordered. She does not have a PCP yet, the physician referral number given and the [facility] number given as well. Her son states they have called the referral number and were supposed to "get a call back from a doctor in [place] on Saturday, but have not received the call." CM will continue to follow and will assist as needed with dc plans/needs. Discharge Planning Comments: Die Cast Technician: Geno Jackson DCPIA - Discharge Planning Initial Assessment Updated by [id number]: Geno Jackson on 03/02/19 6:00 pm * Is the patient Alert and Oriented? Yes * How many steps to enter\\exit or inside your home? 0/0 * PCP No PCP * Pharmacy [facility] on [address] * Preadmission Environment Home with Family * ADLs Partial Dependent * Partial ADLs (Assistance needed) Ambulation * Equipment None * List name and contact numbers for known caregivers / representatives who currently or will assist patient after discharge: Alfredo Rico - son - [phone] Mode Bautista - son - [phone] Desirae Hernandez [facility] - [phone] * Verbal permission to speak to the caregivers and representatives has been obtained from the patient. Yes * Community resources currently utilized None * Additional services required to return to the preadmission environment? Yes * Can the patient safely return to the preadmission environment? No * Has this patient been hospitalized within the prior 30 days at any hospital? Yes External Providers External Provider: OTHER-OTHER Next Contact Date: Service Request Date: Service Type: Resolution: Reviewer: Comments: Coverage Notice Reviewer: [id number] Himanshu Jackson Notice Issued Date-Time: 03/05/2019 14:00 Notice Type: Patient Choice Letter Notice Delivered To: Family Member Relationship to Patient: Son Sales Market Leader Name: Alfredo Rico Delivery Method: HAND - Hand Delivered Malgorzata Days: Prior Verbal Notification: Recipient Understood Notice: Yes Recipient Signature: Yes Med Rec Note Co-signed by Attending: Coverage Notice Comment: TABATHA for [facility] [employer] Reviewer: [id number] Himanshu Jackson Notice Issued Date-Time: 03/09/2019 14:53 Notice Type: IM Discharge Notice Notice Delivered To: Patient Relationship to Patient: Self Sales Market Leader Name: Delivery Method: HAND - Hand Delivered Malgorzata Days: Prior Verbal Notification: Recipient Understood Notice: Yes Recipient Signature: Yes Med Rec Note Co-signed by Attending: Coverage Notice Comment: Explained IMM, signed by her son (Fredi) per patient request, given, copy placed in MR Last DP export: 03/06/19 11:41 a Patient Name: BARBARA OSBORNE Page [id number] at 1525 All edits/amendments must be made on the electronic document DICTATION DATE: 03/09/191524 PRECISION INSTRUMENT AND TOOL MAKER: ALISTAIR 03/09/191524 RPT#: [id number] DC DATE: STATUS: ADM IN [facility] [address] [place] [address] END OF REPORT
--- NOTE | 2019-03-12 10:57 | MORECARE ---
CASE MANAGEMENT DISCHARGE SUMMARY PATIENT: BARBARA OSBORNE UNIT: [id number] ADM DATE: 02/26/19 AGE: 73 : [birth year] SEX: F ROOM/BED: D.2237 AUTHOR: SHIRLEY OCONNOR PHYSICIAN: REFERRING PHYSICIAN: FLORENTIN GARRIDO DO DATE OF SERVICE: 03/12/19 Discharge Plan Patient Name: BARBARA OSBORNE Facility: [facility]:[place] : 1945 Planned Disposition: Inpatient Rehab Anticipated Discharge Date: Discharge Date: 03/09/2019 Expected LOS: 0 Initial Reviewer: [email or web address] Initial Review Date: 03/02/2019 Generated: 03/12/19 11:57 am Comments DCP- Discharge Planning Updated by [id number]: Geno Jackson on 03/09/19 2:[address] Received order for discharge. I called and spoke to Sarah with [employer] [facility], they will see her tomorrow, clinical faxed. I called and spoke to Blu with [facility], they will be here between 4-4:30 for teaching. Son (Fredi) is in the room and informed. Fredi states they have called his sister and she will be here as well for teaching. Son states they have the hospital bed, walker, shower chair in place at the house already from [facility]. I spoke with Dr. Wilhelm's office and will fax clinical to [phone] as requested for an appointment. CM will continue to follow and assist with discharge planning/needs. DCP- Discharge Planning Updated by [email or web address]: Geno Jackson on 03/06/19 11:[address] Sarah with [employer] states they can see the patient on Saturday. The son in law states she cannot come home today because they are spraying for roaches. [facility] has her equipment ready when I send the signed order. I have called Laura for her signature. I spoke with the daughter and they are getting the home ready for discharge on Saturday. CM will continue to follow and assist with discharge planning/needs. DCP- Discharge Planning Updated by [id number]: Geno Jackson on 03/02/19 5:[address] Patient Name: BARBARA OSBORNE Admission Status: Urgent Accout number: [id number] Admission Date: 02-26-2019 : 1945 Admission Diagnosis:NAUSEA WITH VOMITING, UNSPECIFIED Attending: FLORENTIN GARRIDO Current LOS: 4 Anticipated DC Date: Planned Disposition: Inpatient Rehab Primary Insurance: MEDICARE A & B CM met with patient to complete initial dc planning assessment. CM educated patient on the CM role and verbal consent given by patient to complete assessment. Patient lives at home with her son, . At discharge patient plans to go to her daughter's house. CM discussed availability of home health, rehab services, and medical equipment. The patient's sons and daughter are in the room and agree that she may need to have some rehab for strengthening prior to going to her daughter's home. They states they would like to stay here at [facility] for inpatient rehab if she qualifies. PT screen has been ordered. She does not have a PCP yet, the physician referral number given and the [facility] number given as well. Her son states they have called the referral number and were supposed to "get a call back from a doctor in [place] on Saturday, but have not received the call." CM will continue to follow and will assist as needed with dc plans/needs. Discharge Planning Comments: Tier Over: Geno Jackson DCPIA - Discharge Planning Initial Assessment Updated by [email or web address]: Geno Jackson on 03/02/19 6:00 pm * Is the patient Alert and Oriented? Yes * How many steps to enter\\exit or inside your home? 0/0 * PCP No PCP * Pharmacy [facility] on [address] * Preadmission Environment Home with Family * ADLs Partial Dependent * Partial ADLs (Assistance needed) Ambulation * Equipment None * List name and contact numbers for known caregivers / representatives who currently or will assist patient after discharge: Alfredo Rico - son - [phone] Mode Bautista - son - [phone] Desirae Hernandez [facility] - [phone] * Verbal permission to speak to the caregivers and representatives has been obtained from the patient. Yes * Community resources currently utilized None * Additional services required to return to the preadmission environment? Yes * Can the patient safely return to the preadmission environment? No * Has this patient been hospitalized within the prior 30 days at any hospital? Yes Coverage Notice Reviewer: [id number] Himanshu Jackson Notice Issued Date-Time: 03/05/2019 14:00 Notice Type: Patient Choice Letter Notice Delivered To: Family Member Relationship to Patient: Son Cover Mat Machine Operator Name: Alfredo Rico Delivery Method: HAND - Hand Delivered Malgorzata Days: Prior Verbal Notification: Recipient Understood Notice: Yes Recipient Signature: Yes Med Rec Note Co-signed by Attending: Coverage Notice Comment: TABATHA for [employer] [employer] Reviewer: [id number] Himanshu Jackson Notice Issued Date-Time: 03/09/2019 14:53 Notice Type: IM Discharge Notice Notice Delivered To: Patient Relationship to Patient: Self Cover Mat Machine Operator Name: Delivery Method: HAND - Hand Delivered Malgorzata Days: Prior Verbal Notification: Recipient Understood Notice: Yes Recipient Signature: Yes Med Rec Note Co-signed by Attending: Coverage Notice Comment: Explained IMM, signed by her son (Fredi) per patient request, given, copy placed in MR Last DP export: 03/09/19 2:25 p Patient Name: BARBARA OSBRONE Page [id number] at 1057 All edits/amendments must be made on the electronic document DICTATION DATE: 03/12/19 1057 EDGER OPERATOR: ALISTAIR 03/12/19 1057 RPT#: [id number] DC DATE:03/09/19 STATUS: DIS IN [facility] [address] [place] [address] END OF REPORT
== END 2019-03-09 19:24 | disposition home or self-care (01) | DRG 374 ==
LOC: D.MS 16:44
PROVIDERS: Internal Medicine Nephrology; Surgery; ADMIT Family Medicine
PROC: 05HY33Z Insertion of Infusion Device into Upper Vein, Percutaneous Approach (ICD-10-PCS; principal; 2019-02-27)
PROC: 0DH63UZ Insertion of Feeding Device into Stomach, Percutaneous Approach (ICD-10-PCS; 2019-03-04)
PROC: 0JH63XZ Insertion of Tunneled Vascular Access Device into Chest Subcutaneous Tissue and Fascia, Percutaneous Approach (ICD-10-PCS; 2019-03-04 14:15)
DX: C15.9 Malignant neoplasm of esophagus, unspecified (principal); E43 Unspecified severe protein-calorie malnutrition; J18.9 Pneumonia, unspecified organism; N39.0 Urinary tract infection, site not specified; E87.3 Alkalosis; K22.2 Esophageal obstruction; D49.0 Neoplasm of unspecified behavior of digestive system; R11.2 Nausea with vomiting, unspecified; R13.10 Dysphagia, unspecified; Z68.24 Body mass index [BMI] 24.0-24.9, adult; E87.6 Hypokalemia; E83.42 Hypomagnesemia; E87.8 Other disorders of electrolyte and fluid balance, not elsewhere classified; E86.0 Dehydration; H54.3 Unqualified visual loss, both eyes; Z85.3 Personal history of malignant neoplasm of breast; D64.9 Anemia, unspecified; D63.0 Anemia in neoplastic disease

== ENCOUNTER 2019-04-05 13:20 | Emergency (ER) | payer MEDICARE ==
[~2019-04-05 13:20] MED LIST changes: +ALBUTEROL SULF8.5 GM INH; +FLORAJEN3 CAPS460 MG PO; +IPRAT-ALBUT 0.5-3 ML UPD; +PROTONIX40 MG PO
[2019-04-05 17:26] VITALS: BP 115/64
[2019-04-22 10:52] VITALS: BMI 20.9
== END 2019-04-05 17:27 | disposition other institution (70) ==
LOC: D.ER 13:20
DX: K94.13 Enterostomy malfunction (principal)

== ENCOUNTER 2019-04-07 22:36 | Emergency (ER) | payer MEDICARE ==
[~2019-04-07] VITALS: Ht 157.5 cm; Wt 52.3 kg
[2019-04-07 22:43] VITALS: Ht 157.5 cm; Wt 52.3 kg
[2019-04-08 01:10] VITALS: BP 158/111
== END 2019-04-08 01:36 | disposition home or self-care (01) ==
LOC: D.ER 22:36
DX: C15.9 Malignant neoplasm of esophagus, unspecified (principal); R13.10 Dysphagia, unspecified; K94.13 Enterostomy malfunction